=== PATIENT | female | born 1935 | race Caucasian/White ===

== ENCOUNTER 2019-07-17 18:33 | Inpatient (IN) | payer OTHER, SELFPAY ==
[~2019-07-17] VITALS: Ht 162.6 cm; Wt 38.1 kg
--- NOTE | 2019-07-17 18:34 | NUR ---
Patient [facility] from [facility], transferred to bed 12. RN evaluating patient at bedside.
[2019-07-17 18:41] VITALS: BP 120/69
[2019-07-17] MEDS ORDERED: FAMO-90 PO (18:55)
[2019-07-17] MEDS ORDERED: SENN-72 PO (18:55)
[2019-07-17] MEDS ORDERED: MAGN400S60 PO (18:55)
[2019-07-17] MEDS ORDERED: ACET-2619 PO (18:58)
--- NOTE | 2019-07-17 19:00 | NUR ---
84 y/o female PT FELI FROM [facility] FOR DIRECT ADMIT BY DR. BENNETT DUE TO FAILURE TO THRIVE FOR POSSIBLE G-TUBE PLACEMENT. PT IS NORMALLY A&OX2 AND NON-VERBAL. pt resting in bed at lowest position, hob elevated , side rails x2 for pt safety. Pt is connected to media monitor, pulse ox and BP cuff. SIGNED DNR FORM AVAILABLE IN CHART. PMH: DEMENTIA, OA. GERD. HX FALL MEDS: SEE LIST
--- NOTE | 2019-07-17 19:01 | NUR ---
IV placement 22 g R A/C , labs drawn
--- NOTE | 2019-07-17 19:01 | NUR ---
DNR - COMFORT MEASURES ONLY - NO ARTIFICIAL MEANS OF NUTRITION PER POLST.
--- NOTE | 2019-07-17 19:05 | NUR ---
Report given to CLINT Hagen for transfer of care.
--- NOTE | 2019-07-17 19:06 | NUR ---
Pt report RECEIVED FROM CLINT MARVIN. Transfer of care at this time.
[2019-07-17] MEDS ORDERED: NACL 0.9% 1,000 ML IV SCH ×2 (19:09→19:41)
--- NOTE | 2019-07-17 19:10 | NUR ---
Dr. Marcial examining patient.
--- NOTE | 2019-07-17 19:15 | NUR ---
PT RESTING IN BED IN POSITION OF COMFORT, BED LOW AND LOCKED, 2 SIDERAILS UP, VSS, WILL CONTINUE TO MONITOR.
--- NOTE | 2019-07-17 19:20 | NUR ---
X-Ray at bedside.
--- NOTE | 2019-07-17 19:37 | NUR ---
AT BEDSIDE EXAMINING PT
[2019-07-17] MEDS ORDERED: ACETAMINOPHEN 325 MG TAB PO PRN (19:45)
[2019-07-17] MEDS ORDERED: DOCUSATE SODIUM 100 MG GELCAP PO PRN (19:45)
[2019-07-17] MEDS ORDERED: ONDANSETRON 4 MG/2 ML VIAL IM/IVP PRN (19:45)
[2019-07-17 19:52] LABS: ANION GAP 12.9 (8-16); ASPARTATE AMINOTRANSFERASE 20 U/L (15-37); CARBON DIOXIDE 26.9 mmol/L (21-32); CHLORIDE 104 mmol/L (98-107); CREATININE 0.9 mg/dL (0.6-1.3); GLUCOSE 98 mg/dL (74-106); MAGNESIUM 2.1 mg/dL (1.8-2.4); PHOSPHORUS 3.2 mg/dL (2.5-4.9); POTASSIUM 3.8 mmol/L (3.5-5.1); SODIUM SERUM 140 mmol/L (136-145); TOTAL BILIRUBIN 0.4 mg/dL (0.0-1.0); UREA NITROGEN, BLOOD 12 mg/dL (7-18)
--- NOTE | 2019-07-17 19:58 | NUR ---
MARIIA RN DID 12 LEAD EKG AT BEDSIDE AND PLACED ON DR.EVANS STAFFORD FOR REVIEW
[2019-07-17 19:59] LABS: BASOPHILS # (AUTO) 0.1 K/uL (0.00-0.22); BASOPHILS % (AUTO) 2.1 % (0.0-2.0); EOSINOPHILS # (AUTO) 0.2 K/uL (0-0.4); EOSINOPHILS % (AUTO) 4.2 % (0.0-4.0); HEMATOCRIT 39.3 % (36-48); HEMOGLOBIN 12.8 g/dL (12.0-16.0); LYMPHOCYTES # (AUTO) 1.3 K/uL (2.5-16.5); LYMPHOCYTES % (AUTO) 29.4 % (20.5-51.1); MEAN CORPUSCULAR HEMOGLOBIN 30 pg (27-31); MEAN CORPUSCULAR HGB CONC 33 g/dL (33-37); MEAN CORPUSCULAR VOLUME 92.1 fL (80-94); MONOCYTES # (AUTO) 0.3 K/uL (0.8-1.0); MONOCYTES % (AUTO) 7.2 % (1.7-9.3); NEUTROPHILS # (AUTO) 2.6 K/uL (1.8-7.7); NEUTROPHILS % (AUTO) 57.1 % (42.2-75.2); PLATELET COUNT (AUTO) 243 K/uL (140-450); RED BLOOD CELL COUNT(AUTO) 4.27 MIL/uL (4.20-5.40); WHITE BLOOD COUNT (AUTO) 4.5 K/uL (4.8-10.8)
--- NOTE | 2019-07-17 20:00 | NUR ---
IN AND OUT UA ATTEMPTED, UNABLE TO COLLECT UA. ENDORSED TO CHARGE NURSE AMY AT TELEMETRY.
--- NOTE | 2019-07-17 20:10 | NUR ---
PT RESTING IN BED IN POSITION OF COMFORT, BED LOW AND LOCKED, 2 SIDERAILS UP, VSS, WILL CONTINUE TO MONITOR.
[2019-07-17 20:24] LABS: PROTHROMBIN TIME 10.4 secs (10.8-13.4)
[2019-07-17 20:40] VITALS: BP 126/76
--- NOTE | 2019-07-17 20:40 | NUR ---
RECEIVED BEDSIDE REPORT FROM DAY RN. PT IS AAOX3. [place]. RESPIRATIONS ARE EQUAL AND UNLABORED ON RA SAT WELL 99%. LUNG SOUNDS ARE CLEAR. SKIN IS INTACT. C/C DECREASED APPETITE. PT UNDER WEIGHT PER BED SCALE 82LB. PT STATES DECREASED PO AND SOME WEIGHT LOSS UNSURE HOW MUCH. DENIES ANY SWALLOWING DIFFICULT. POC: ST EVAL TOMORROW IF PT DOES NOT PASS POSSIBLE G TUBE PLACEMENT. PT VERBALIZED UNDERSTANDING. PT NPO TONIGHT. IV ON RAC 22G NS BOLUS STILL INFUSING. VS: 126/76 H 78 99%RA 16 97.0 DENIES PAIN. MRSA SWAB OBTAINED. PT COMING FROM [facility] ORDER FOR R/O COVID. WILL SWAB. ISOLATION PER PROTOCOL SIGN AT DOOR. PT IS INCONTINENT. BEDREST. ORIENTED PT TO ROOM, STAFF AND CALL LIGHT. BED ALARM ON. WILL ROUND FREQUENTLY.
--- NOTE | 2019-07-17 20:42 | NUR ---
Patient will be admitted to care of . Admited to [facility]. Will go to room 116. Belongings list completed. Report to CLINT MURRELL.
[2019-07-17] MEDS ORDERED: ALBUTEROL HFA MDI 90 MCG/ACTUATION 8 GM INH PRN (20:45)
[2019-07-17] MEDS ORDERED: PANTOPRAZOLE 40 MG INJ VIAL IVP SCH (21:15)
--- NOTE | 2019-07-17 21:15 | NUR ---
COVID SWAB COLLECTED AND SENT TO LAB. NPO SIGN AT DOOR. IVF D5NS AT 90ML/H NOW INFUSING. CALL LIGHT IS WITHIN REACH.
[2019-07-17] MEDS: DEXT 5% / NACL 0.9% 500 ML IV SCH (21:23)
--- NOTE | 2019-07-17 22:15 | NUR ---
PATIENT IS SLEEPING COMFORTABLY IN BED. NO S/S OF DISTRESS. CALL LIGHT IS WITHIN REACH. WILL CONTINUE TO MONITOR.
[2019-07-18] VITALS: BP 129/71
--- NOTE | 2019-07-18 | NUR ---
VITAL SIGNS ARE WITHIN NORMAL LIMITS. ALL SAFETY MEASURES ARE IN PLACE. CALL LIGHT IS WITHIN REACH.
[2019-07-18] MEDS: DEXT 5% / NACL 0.9% 500 ML IV SCH ×2 (02:06→06:28)
--- NOTE | 2019-07-18 02:30 | NUR ---
PT IS SLEEPING COMFORTABLY IN BED. CHEST RISE AND FALL NOTED. CALL LIGHT IS WITHIN REACH. Addendum: 07/18/19 at 0331 by Kiarra Sands RN PREPARED TO STRAIGHT CATH PT WITH 15FR USED STERILE TECHNIQUE BUT WHEN CLEANING THE URETHRA PT STARTED TO VOID. COLLECTED SMALL AMOUNT OF CLEAR LIGHT YELLOW URINE IN SPECIMEN CUP AND SENT TO LAB. PT WAS NOT STRAIGHT CATH D/T VOIDING DURING PREPARATION OF PROCEDURE. WILL F/U WITH LAB IF THE AMOUNT COLLECTED IS SUFFICIENT. PT WAS CLEANED AND REPOSITION FOR COMFORT. WILL CONTINUE TO MONITOR.
[2019-07-18 02:42] LABS: APPEARANCE,URINE CLOUDY (CLEAR); BILIRUBIN,URINE NEGATIVE (NEGATIVE); BLOOD, URINE NEGATIVE (NEGATIVE); COLOR,URINE YELLOW (YELLOW); LEUKOCYTE ESTERASE ,URINE 1+ (NEGATIVE); NITRITE, URINE POSITIVE (NEGATIVE); UGLUCOSE NEGATIVE (NEGATIVE)
[2019-07-18 03:21] LABS: RBC,URINE 0-5 /HPF (0-5)
[2019-07-18 04:00] VITALS: BP 123/60
--- NOTE | 2019-07-18 04:00 | NUR ---
VITAL SIGNS ARE WITHIN NORMAL LIMITS. NO S/S OF DISTRESS. CALL LIGHT IS WITHIN REACH.
[2019-07-18] MEDS ORDERED: cefTRIAXone 1,000 MG VIAL ONE (06:26)
--- NOTE | 2019-07-18 07:21 | NUR ---
GAVE BEDSIDE REPORT TO DAY RN. PT ENDORSED IN STABLE CONDITION.
--- NOTE | 2019-07-18 07:24 | NUR ---
RECEIVED BEDSIDE REPORT FROM NIGHT NURSE. PATIENT AWAKE, ALERT AND ORIENTED X 2-3. INTRODUCED SELF. RESPIRATION EVEN AND UNLABORED. SKIN WARM AND DRY TO TOUCH. IV INTACT AND PATENT TO RIGHT AC WITH D5/NS 90ML/HR. TOLERATING WELL. PLANS OF CARE DISCUSSED. BED IN LOW POSITION. SAFETY MEASURES IN PLACE. CALL LIGHT WITHIN REACH.
[2019-07-18 07:38] LABS: BASOPHILS # (AUTO) 0.1 K/uL (0.00-0.22); BASOPHILS % (AUTO) 2.5 % (0.0-2.0); EOSINOPHILS # (AUTO) 0.2 K/uL (0-0.4); EOSINOPHILS % (AUTO) 5.4 % (0.0-4.0); HEMATOCRIT 37.2 % (36-48); HEMOGLOBIN 12.1 g/dL (12.0-16.0); LYMPHOCYTES # (AUTO) 1.3 K/uL (2.5-16.5); LYMPHOCYTES % (AUTO) 27.6 % (20.5-51.1); MEAN CORPUSCULAR HEMOGLOBIN 30 pg (27-31); MEAN CORPUSCULAR HGB CONC 33 g/dL (33-37); MEAN CORPUSCULAR VOLUME 92.4 fL (80-94); MONOCYTES # (AUTO) 0.4 K/uL (0.8-1.0); MONOCYTES % (AUTO) 9.1 % (1.7-9.3); NEUTROPHILS # (AUTO) 2.5 K/uL (1.8-7.7); NEUTROPHILS % (AUTO) 55.4 % (42.2-75.2); PLATELET COUNT (AUTO) 208 K/uL (140-450); RED BLOOD CELL COUNT(AUTO) 4.03 MIL/uL (4.20-5.40); RED CELL DISTRIBUTION WIDTH 15.2 % (11.6-13.7); WHITE BLOOD COUNT (AUTO) 4.6 K/uL (4.8-10.8)
[2019-07-18 07:56] LABS: ANION GAP 11.9 (8-16); CARBON DIOXIDE 25.7 mmol/L (21-32); CHLORIDE 109 mmol/L (98-107); CREATININE 0.8 mg/dL (0.6-1.3); GLUCOSE 98 mg/dL (74-106); POTASSIUM 3.6 mmol/L (3.5-5.1); SODIUM SERUM 143 mmol/L (136-145); UREA NITROGEN, BLOOD 10 mg/dL (7-18)
[2019-07-18 08:00] VITALS: BP 118/71
[2019-07-18 08:03] LABS: PHOSPHORUS 3.3 mg/dL (2.5-4.9)
[2019-07-18] MEDS: PANTOPRAZOLE 40 MG INJ VIAL IVP SCH (08:17)
[2019-07-18 08:28] LABS: CHOL/HDL RATIO 2.7 (1-4.5)
--- NOTE | 2019-07-18 08:35 | NUR ---
AM MEDICATIONS GIVEN. PATIENT AWAKE, VERBALLY RESPONSIVE. WATCHING TV. NO DISTRESS NOTED. INITIAL ASSESSMENT DONE. CALL LIGHT WITHIN REACH.
[2019-07-18] MEDS: DEXT 5% /NACL 0.9% 1,000 ML IV SCH ×2 (08:36→20:26)
--- NOTE | 2019-07-18 09:25 | NUR ---
PATIENT HAS BEEN SCREENED AND CATEGORIZED HIGH NUTRITION RISK. PATIENT WILL BE SEEN WITHIN 1-2 DAYS OF ADMISSION. 07/18/19-07/19/[address]
[2019-07-18] MEDS ORDERED: SENNA 8.6 MG TAB PO PRN (10:00)
--- NOTE | 2019-07-18 10:30 | NUR ---
ROUNDS MADE. PATIENT REMAINS ALERT, AND ORIENTED X3. NO S/S OF DISTRESS NOTED.
[2019-07-18 12:00] VITALS: BP 121/64
--- NOTE | 2019-07-18 12:30 | NUR ---
PATIENT AAOX4. PATIENT CHANGED AND REPOSITIONED FOR COMFORT. DENIES ANY SOB OR DISCOMFORT. CALL LIGHT WITHIN REACH. BED IN LOW POSITION. BED ALARM ON.
--- NOTE | 2019-07-18 14:00 | NUR ---
PATIENT REMAINS STABLE. AWAKE, ALERT AND VERBALLY RESPONSIVE. DENIES ANY PAIN, SOB OR DISCOMFORT. PATIENT IS WITH HOB ELEVATED WATCHING TV.
--- NOTE | 2019-07-18 15:16 | NUR ---
FNS CONSULT RECEIVED FOR FAILURE TO THRIVE. PENDING SWALLOW EVALUATION RECOMMENDATIONS. PATIENT IS NPO STATUS.
--- NOTE | 2019-07-18 15:40 | NUR ---
SPEECH THERAPY AT BEDSIDE.
[2019-07-18 16:00] VITALS: BP 119/63
--- NOTE | 2019-07-18 16:07 | NUR ---
ST CLARIFICATION NOTE Pt DEMONSTRATES MILD OROPHARYNGEAL DYSPHAGIA. Pt HAS OWN ADEQUATE DENTITION FOR MASTICATION. Pt WAS ABLE TO TOLERATE TRIALS OF PUREE, MSC, HTL BY CUP, AND NTL BY CUP W/O DIFFICULTY OR OVERT S/S OF ASPIRATION OR PENETRATION NOTED. AP TRANSFER AND SWALLOW RESPONSE WERE TIMELY WITH FULL LARYNGEAL ELEVATION AND EXCURSION. MILD COUGH FOLLOWING TRIALS OF THIN BY CUP AND STRAW NOTED. Pt WAS ABLE TO FEED SELF WITH TRAY SET UP AND SUPERVISION. REC MSC FOOD AND NECTAR THICK LIQUIDS BY CUP ONLY; SINGLE SIPS ENCOURAGED. NO STRAW. ASPIRATION PRECAUTIONS, ORAL CARE, TRAY SET UP, AND INTERMITTENT SUPERVISION NEEDED. ST FOR SWALLOW TX ORDERED FOR ONGOING DIET ANALYSIS, SAFE SWALLOW STRATEGIES, AND Pt/CAREGIVER EDUCATION.
--- NOTE | 2019-07-18 17:05 | NUR ---
ROUNDS MADE. PATIENT AWAKE, ALERT AND VERBALLY RESPONSIVE. PT WITH HARD OR HEARING. NO S/S OF DISTRES NOTED. PATIENT REPOSITIONED FOR COMFORT. CALL LIGHT WITHIN REACH.
--- NOTE | 2019-07-18 18:48 | NUR ---
PATIENT REMAINS IN STABLE CONDITION. WILL ENDORSE TO NIGHT NURSE FOR CONTINUITY OF CARE.
--- NOTE | 2019-07-18 19:05 | NUR ---
RECEIVED BEDSIDE REPORT FROM DAY SHIFT NURSE. PATIENT IS AWAKE, ALERT, AND COOPERATIVE. RESPIRATION EVEN UNLABORED ON ROOM AIR. NO DISTRESS NOTED. SKIN IS WARM AND DRY. IV PATENT AND INTACT. PLAN OF CARE WAS DISCUSSED. ALL SAFETY MEASURES IN PLACE. BED IS AT LOW POSITION. CALL LIGHT WITHIN REACH AND VERBALIZES ITS USE. WILL CONTINUE TO MONITOR.
[2019-07-18 20:00] VITALS: BP 116/61
--- NOTE | 2019-07-18 20:00 | NUR ---
INITIAL ASSESSMENT DONE. HARD HEARING. VITALS WERE TAKEN. PATIENT IN STABLE CONDITION. SATING 98% ROOM AIR. NO DISTRESS NOTED. WILL CONTINUE TO MONITOR
--- NOTE | 2019-07-18 20:27 | NUR ---
ALL SCHEDULED MEDS WERE GIVEN PER ORDER. NO ASE NOTED. WILL CONTINUE TO MONITOR.
--- NOTE | 2019-07-18 23:37 | NUR ---
CHECKED PATIENT. PATIENT SLEEPING RESPIRATION EVEN UNLABORED ON ROOM AIR. NO DISTRESS NOTED. WILL CONTINUE TO MONITOR.
[2019-07-19] VITALS: BP 122/63
--- NOTE | 2019-07-19 00:05 | NUR ---
VITALS WERE TAKEN. PATIENT IN STABLE CONDITION. NO DISTRESS NOTED. WILL CONTINUE TO MONITOR.
--- NOTE | 2019-07-19 02:27 | NUR ---
CHECKED PATIENT. PATIENT SLEEPING RESPIRATION EVEN UNLABORED ON ROOM AIR. NO DISTRESS NOTED. WILL CONTINUE TO MONITOR.
[2019-07-19 04:00] VITALS: BP 116/61
--- NOTE | 2019-07-19 04:18 | NUR ---
VITALS WERE TAKEN. PATIENT IN STABLE CONDITION. NO DISTRESS NOTED. WILL CONTINUE TO MONITOR.
[2019-07-19] MEDS: DEXT 5% /NACL 0.9% 1,000 ML IV SCH (06:32)
[2019-07-19 06:36] LABS: BASOPHILS % (AUTO) 1.1 % (0.0-2.0); EOSINOPHILS # (AUTO) 0.1 K/uL (0-0.4); EOSINOPHILS % (AUTO) 3.2 % (0.0-4.0); HEMATOCRIT 38.9 % (36-48); HEMOGLOBIN 12.7 g/dL (12.0-16.0); LYMPHOCYTES # (AUTO) 0.7 K/uL (2.5-16.5); LYMPHOCYTES % (AUTO) 15.2 % (20.5-51.1); MEAN CORPUSCULAR HEMOGLOBIN 30 pg (27-31); MEAN CORPUSCULAR HGB CONC 33 g/dL (33-37); MEAN CORPUSCULAR VOLUME 91.8 fL (80-94); MONOCYTES # (AUTO) 0.4 K/uL (0.8-1.0); MONOCYTES % (AUTO) 8.9 % (1.7-9.3); NEUTROPHILS # (AUTO) 3.2 K/uL (1.8-7.7); NEUTROPHILS % (AUTO) 71.6 % (42.2-75.2); PLATELET COUNT (AUTO) 235 K/uL (140-450); RED BLOOD CELL COUNT(AUTO) 4.23 MIL/uL (4.20-5.40); RED CELL DISTRIBUTION WIDTH 14.5 % (11.6-13.7); WHITE BLOOD COUNT (AUTO) 4.5 K/uL (4.8-10.8)
--- NOTE | 2019-07-19 07:10 | NUR ---
ENDORSED PATIENT TO DAY SHIFT NURSE. PATIENT IN STABLE CONDITION.
--- NOTE | 2019-07-19 07:15 | NUR ---
RECEIVED BEDSIDE REPORT FROM NIGHTSHIFT NURSE. PT RESTING IN BED. ABLE TO MAKE NEEDS KNOWN. RESPIRATIONS EVEN AND UNLABORED WITH NO SOB OR RESPIRATORY DISTRESS. SKIN WARM AND DRY TO TOUCH. SAFETY MEASURES IN PLACE. WILL CONTINUE TO MONITOR
--- NOTE | 2019-07-19 07:38 | NUR ---
RECEIVED BEDSIDE REPORT FROM DAY SHIFT RN, ALEJANDRA, FOR CONTINUITY OF CARE. PT IS AAOX2. SUN'AQ. RESPIRATIONS ARE EQUAL AND UNLABORED ON RA SAT WELL 99%. LUNG SOUNDS ARE CLEAR. FALL PRECAUTIONS INITIATED. IV ON THE RAC 22G WITH D5NS RUNNING AT 90ML/HR. PT. IS ON MECHANICAL SOFT, NECTAR THICK LIQUID DIET. CONTACT AND DROPLET ISOLATION FOR C. DIFF AND R/O COVID-19, PER PROTOCOL SIGN AT DOOR. PT IS INCONTINENT. SAFETY PRECAUTIONS IN PLACE. CALL LIGHT WITHIN REACH. WILL CONTINUE TO MONITOR.
--- NOTE | 2019-07-19 07:38 | NUR ---
ENDORSED TO DAYSHIFT NURSE. PT IS STABLE
[2019-07-19 07:49] LABS: ANION GAP 12.4 (8-16); CARBON DIOXIDE 23.7 mmol/L (21-32); CHLORIDE 108 mmol/L (98-107); CREATININE 0.6 mg/dL (0.6-1.3); GLUCOSE 113 mg/dL (74-106); POTASSIUM 3.1 mmol/L (3.5-5.1); SODIUM SERUM 141 mmol/L (136-145); UREA NITROGEN, BLOOD 3 mg/dL (7-18)
[2019-07-19 07:51] LABS: MAGNESIUM 1.8 mg/dL (1.8-2.4); PHOSPHORUS 2.9 mg/dL (2.5-4.9)
[2019-07-19 08:00] VITALS: BP 137/63
[2019-07-19] MEDS: MAGNESIUM HYDROXIDE 2400 MG/30 ML UDC PO SCH (08:00)
--- NOTE | 2019-07-19 08:10 | NUR ---
V/S TAKEN, ASSESSED PT. LUNG SOUNDS CLEAR. PT. VERBALIZES NO PAIN. NO EDEMA SEEN. CAP REFILL <3 SEC. GENERALIZED WEAKNESS, ABLE TO AMBULATE WITH ASSIST. PT. IS HARD OF HEARING. NO SIGNS OF DISTRESS NOTED. WILL CONTINUE TO MONITOR.
[2019-07-19] MEDS: PANTOPRAZOLE 40 MG INJ VIAL IVP SCH (08:17)
--- NOTE | 2019-07-19 08:20 | NUR ---
MORNING MEDICATIONS GIVEN. NO SIGNS OF DISTRESS NOTED. WILL CONTINUE TO MONITOR.
--- NOTE | 2019-07-19 10:30 | NUR ---
PT. HAS FINISHED EATING BREAKFAST, FINISHED 95% OF MEAL AND SUPPLEMENTAL DRINK. DR. LOCKETT IS AWARE. CRITICAL POTASSIUM VALUE OF 3.[address] LEVY MD WILL PLACE ORDER. WILL CONTINUE TO MONITOR.
[2019-07-19] MEDS ORDERED: POTASSIUM CHLORIDE 40 MEQ, LIDOCAINE MPF 1% 25 MG in NACL 0.9% 250 ML IV SCH (11:00)
--- NOTE | 2019-07-19 11:30 | NUR ---
KCL IV GIVEN FOR POTASSIUM VALUE OF 3.1. PT. IS AWARE AND VERBALIZES UNDERSTANDING. NO SIGNS OF DISTRESS NOTED. V/S TAKEN AND IS WITHIN NORMAL LIMITS. WILL CONTINUE TO MONITOR.
[2019-07-19 12:00] VITALS: BP 128/69
--- NOTE | 2019-07-19 12:57 | NUR ---
FAXED PATIENTS CLINICALS TO [facility] AND FOLLOWED UP WITH FAVIAN [phone]. PATIENT WILL BE GOING TO ROOM 20-B, ACCEPTING DOCTOR DR. TUCKER. FAVIAN WILL PROVIDE TRANSPORTATION TOMORROW WITH [employer] ONCE PATIENT IS READY FOR DISCHARGE. FAVIAN WILL BE WORKING THIS WEEKEND AND YOU COULD REACH HER DIRECTLY AT [phone]. Addendum: 07/20/19 at 1454 by Kalyani Dickerson CM DC PLANNING SPOKE WITH FAVIAN AT [facility] STAMP ANALYST TIME 12:30 -1:30 PM .
--- NOTE | 2019-07-19 13:35 | NUR ---
07/19/19 RD INITIAL ASSESSMENT COMPLETED PLEASE REFER TO NUTRITION ASSESSMENT UNDER CARE ACTIVITY FOR ESTIMATED NUTRITIONAL NEEDS. 1. CONTINUE MECHANICAL SOFT DIET WITH NECTAR THICK LIQUIDS TOLERATED 2. RECOMMEND ENSURE TID 3. ASSIST WITH SETTING UP TRAY 4. ENCOURAGE INCREASING PO INTAKE 5. RD TO FOLLOW-UP 2-3 DAYS, HIGH RISK CATHY RANGEL, RD
--- NOTE | 2019-07-19 14:20 | NUR ---
PT. IS CLEANED, CHANGED, AND TURNED. NO SIGNS OF DISTRESS NOTED. PT. VERBALIZES NO PAIN. WILL CONTINUE TO MONITOR.
[2019-07-19 16:00] VITALS: BP 120/67
--- NOTE | 2019-07-19 16:30 | NUR ---
SPOKE TO DR. LOCKETT ABOUT C. DIFF STOOL COLLECTION. PT. HAD NO BM SINCE MORNING OF 07/18/2019, DR. LOCKETT STATES NO INDICATION FOR C. DIFF. WILL D/C ORDER. WILL FOLLOW THROUGH.
--- NOTE | 2019-07-19 18:00 | NUR ---
PT. ASLEEP AND IN BED. NO SIGNS OF DISTRESS NOTED. WILL CONTINUE TO MONITOR.
--- NOTE | 2019-07-19 19:10 | NUR ---
ENDORSED TO LEAD TECHNICIAN NURSEJOHNNA, FOR CONTINUITY OF CARE.
--- NOTE | 2019-07-19 19:15 | NUR ---
RECEIVED REPORT FROM AM SHIFT RN. PATIENT IS IN BED. NO DISTRESS NOTED. PATIENT IS HARD OF HEARING. ABLE TO MAKE NEEDS KNOWN. HAS RAC 22 GAUGE, INTACT, INFUSING IVF. FALL RISK PROTOCOL IN PLACE. ISOLATION PRECAUTION OBSERVED. PLAN OF CARE WAS DISCUSSED. CALL LIGHT WITHIN REACH. WILL CONTINUE TO MONITOR.
[2019-07-19 20:00] VITALS: BP 114/63
--- NOTE | 2019-07-19 20:49 | NUR ---
HEPARIN 5000 UNITS SQ GIVEN ORDERED. TOLERATED WELL. V/S TAKEN. DENIES PAIN. WILL CONTINUE TO MONITOR.
--- NOTE | 2019-07-19 23:30 | NUR ---
PATIENT IS AWAKE. DENIES PAIN. KEPT CLEAN, DRY AND COMFORTABLE AT ALL TIMES. WILL CONTINUE TO MONITOR.
[2019-07-20] VITALS: BP 121/59
--- NOTE | 2019-07-20 01:00 | NUR ---
PATIENT IS ASLEEP. RESPIRATION EVEN AND UNLABORED. CALL LIGHT WITHIN REACH. WILL CONTINUE TO MONITOR.
--- NOTE | 2019-07-20 03:27 | NUR ---
CHECKED PATIENT. SLEEPING. NO SOB. WILL CONTINUE TO MONITOR.
[2019-07-20 04:00] VITALS: BP 134/66
--- NOTE | 2019-07-20 05:31 | NUR ---
PATIENT IS RESTING. NO SOB. WILL CONTINUE TO MONITOR.
[2019-07-20] MEDS: DEXT 5% /NACL 0.9% 1,000 ML IV SCH (06:34)
[2019-07-20 06:39] LABS: EOSINOPHILS # (AUTO) 0.1 K/uL (0-0.4); EOSINOPHILS % (AUTO) 2.1 % (0.0-4.0); HEMATOCRIT 40.6 % (36-48); HEMOGLOBIN 13.3 g/dL (12.0-16.0); LYMPHOCYTES # (AUTO) 0.8 K/uL (2.5-16.5); LYMPHOCYTES % (AUTO) 16.8 % (20.5-51.1); MEAN CORPUSCULAR HEMOGLOBIN 30 pg (27-31); MEAN CORPUSCULAR HGB CONC 33 g/dL (33-37); MEAN CORPUSCULAR VOLUME 91.1 fL (80-94); MONOCYTES # (AUTO) 0.3 K/uL (0.8-1.0); MONOCYTES % (AUTO) 7.3 % (1.7-9.3); NEUTROPHILS # (AUTO) 3.3 K/uL (1.8-7.7); NEUTROPHILS % (AUTO) 72.8 % (42.2-75.2); PLATELET COUNT (AUTO) 218 K/uL (140-450); RED BLOOD CELL COUNT(AUTO) 4.46 MIL/uL (4.20-5.40); RED CELL DISTRIBUTION WIDTH 15.1 % (11.6-13.7); WHITE BLOOD COUNT (AUTO) 4.5 K/uL (4.8-10.8)
[2019-07-20 07:07] LABS: ANION GAP 11.8 (8-16); CARBON DIOXIDE 27.9 mmol/L (21-32); CHLORIDE 105 mmol/L (98-107); CREATININE 0.7 mg/dL (0.6-1.3); GLUCOSE 92 mg/dL (74-106); POTASSIUM 3.7 mmol/L (3.5-5.1); SODIUM SERUM 141 mmol/L (136-145); UREA NITROGEN, BLOOD 3 mg/dL (7-18)
--- NOTE | 2019-07-20 07:17 | NUR ---
PATIENT IS STABLE. ENDORSED TO AM SHIFT RN FOR CONTINUITY OF CARE.
--- NOTE | 2019-07-20 07:20 | NUR ---
RECEIVED PATIENT FROM PLASTER MACHINE OPERATOR NURSE FOR CONTINUITY OF CARE. PATIENT IS CURRENTLY SLEEPING AT THIS TIME. NO SIGNS OF DISTRESS NOTED. RESPIRATIONS EVEN AND UNLABORED, ROOM AIR. VISIBLE CHEST RISE AND FALL NOTED. ABDOMEN SOFT AND NONTENDER. MECHANICAL SOFT DIET. INCONTINENT TO BOTH VOIDING AND BM. SKIN WARM, DRY, AND INTACT. IV IN THE RIGHT AC G22 RUNNING D5NS AT 20 ML/HR. NO SIGNS OF IV INFILTRATION. IVF RUNNING WELL. BED BOUND. CONTRACTED. DROPLET PRECAUTION FOR COVID-19. FALL PRECAUTION IN PLACE. CALL LIGHT IS WITHIN REACH. WILL CONTINUE TO MONITOR.
[2019-07-20 08:00] VITALS: BP 137/77
[2019-07-20] MEDS: MAGNESIUM HYDROXIDE 2400 MG/30 ML UDC PO SCH (08:33)
[2019-07-20] MEDS: PANTOPRAZOLE 40 MG INJ VIAL IVP SCH (08:33)
--- NOTE | 2019-07-20 08:33 | NUR ---
GIVEN MORNING MEDICATIONS SCHEDULED. MOM PO. HEPARIN SUBQ IN THE ABD. PLATELET IS 218. PATIENT TOLERATED WELL. PROTONIX IVP. GIVEN MEDICATION EDUCATION. BED IN LOW POSITION. CALL LIGHT IS WITHIN REACH. WILL CONTINUE TO MONITOR.
[2019-07-20] MEDS ORDERED: LACT-81 PO (09:10)
[2019-07-20] MEDS ORDERED: ROC2I IV (09:10)
--- NOTE | 2019-07-20 09:12 | NUR ---
FED PATIENT WITH VANILLA PUDDING. PATIENT TOLERATED WELL. DID NOT ASPIRATE. PATIENT NEEDS ASSISTANCE FEEDING.
--- NOTE | 2019-07-20 09:33 | NUR ---
PT SLEEPING COMFORTABLY 98% ON RA HR 71
[2019-07-20 09:58] VITALS: BP 125/69
--- NOTE | 2019-07-20 10:31 | NUR ---
GIVEN REPORT TO CLINT CROFT, AT [facility]. EXPLAINED THAT PATIENT WILL BE GETTING ROCEPHIN 1G QD FOR 3DAYS WELL CULTURELLE. WON'T DISCONTINUE IV. NO FURTHER QUESTIONS ASKED. Addendum: 07/20/19 at 1033 by Princess Marie Bhat RN ALSO EXPLAINED THAT PATIENT NEEDS ASSISTANCE WITH EATING. SHE VERBALIZED UNDERSTANDING.
[2019-07-20 12:00] VITALS: BP 134/71
--- NOTE | 2019-07-20 12:17 | NUR ---
VITAL SIGNS CHECKED. GIANA COOPER, IS FEEDING PATIENT.
--- NOTE | 2019-07-20 12:35 | NUR ---
PATIENT IS UNABLE TO SIGN DISCHARGE PAPERWORK. UP TO DATE WITH VACCINES. IV LEFT INTACT FOR ABX THAT WILL BE GIVEN AT THE SKILLED FACILITY.
--- NOTE | 2019-07-20 12:36 | NUR ---
PER CHARGE NURSE MONROE, LDR RN TIME IS BETWEEN [phone], [facility].
--- NOTE | 2019-07-20 12:59 | NUR ---
DISCHARGED PATIENT VIA GURNEY AND WITH [facility]. PATIENT IS IN STABLE CONDITION.
== END 2019-07-20 13:00 | DRG 689 ==
LOC: MED 18:33 → MTU 19:44 → EEVIPCON 19:44 → MTU 20:30
PROVIDERS: ADMIT General Practice; ATTEND General Practice
DX: N39.0 Urinary tract infection, site not specified (principal); E43 Unspecified severe protein-calorie malnutrition; Z68.1 Body mass index [BMI] 19.9 or less, adult; R62.7 Adult failure to thrive; F03.90 Unspecified dementia, unspecified severity, without behavioral disturbance, psychotic disturbance, mood disturbance, and anxiety; K21.9 Gastro-esophageal reflux disease without esophagitis; D72.819 Decreased white blood cell count, unspecified; E87.6 Hypokalemia; M19.90 Unspecified osteoarthritis, unspecified site; R26.2 Difficulty in walking, not elsewhere classified; B96.89 Other specified bacterial agents as the cause of diseases classified elsewhere; J44.9 Chronic obstructive pulmonary disease, unspecified; M81.0 Age-related osteoporosis without current pathological fracture; Z03.818 Encounter for observation for suspected exposure to other biological agents ruled out; Z88.8 Allergy status to other drugs, medicaments and biological substances; Z79.899 Other long term (current) drug therapy
CPT/HCPCS: 36415; 71045; 80048; 80053; 81001; 83036; 83735; 83880; 84100; 84134; 84443; 84484; 85025; 85610; 85730; 87081; 87086; 87186; 92610; 93005; 96360; 99285; C1758; C9113; J0696; J1644; J2001; J3480; J7030; J7042; J7060; U0003-CS